=== PATIENT | female | born 1980 | race Native Hawaiian/Other Pacific Islander ===

== ENCOUNTER 2017-04-10 12:34 | Outpatient (CLI) | payer BC | END 2017-04-10 13:40 | disposition home or self-care (01) | LOC: MRI 12:34 | DX: M54.5 Low back pain (principal); M54.6 Pain in thoracic spine ==

== ENCOUNTER 2017-05-29 13:29 | Outpatient (CLI) | payer BC | END 2017-05-29 20:07 | disposition home or self-care (01) | LOC: MRI 13:29 | DX: M54.2 Cervicalgia (principal) ==